=== PATIENT | male | born 1950 | race Caucasian/White ===

== ENCOUNTER 2021-05-15 08:34 | Outpatient (CLI) | payer MEDICARE, OTHER | END 2021-05-15 08:35 | disposition home or self-care (01) | LOC: CSHCT 08:34 | PROVIDERS: ATTEND Internal Medicine Hematology & Oncology | DX: C25.0 Malignant neoplasm of head of pancreas (principal); K83.9 Disease of biliary tract, unspecified; K31.89 Other diseases of stomach and duodenum; K63.89 Other specified diseases of intestine; Z98.890 Other specified postprocedural states; J43.9 Emphysema, unspecified | CPT/HCPCS: 71260; 74177 ==

== ENCOUNTER 2021-05-20 11:35 | Inpatient (IN) | payer MEDICARE, OTHER ==
[2021-05-20] MEDS ORDERED: Ondansetron PF 4 MG/2 ML Vial ONE (12:20)
[2021-05-20 12:27] LABS: Hemoglobin 11.8 g/dL (13.5-17.5); Mean Corpuscular HGB CONC 32.3 g/dL (32.0-36.0); Mean Corpuscular Volume 92.9 fl (81.2-95.1); Mean Platelet Volume 9.2 fl (7.4-10.4); Platelet Count 435 10x3/uL (150-450); RBC Distribution Width 14.8 % (11.5-14.5); Red Blood Cell (RBC) Count 3.93 10x6/uL (4.32-5.72); White Blood Cell (WBC) Count 20.7 10x3/uL (3.5-10.5)
[2021-05-20 12:29] LABS: MDiff Complete? YES
[2021-05-20 12:40] LABS: ALT (SGPT) 24 U/L (8-55); AST (SGOT) 22 U/L (5-34); Albumin 3.8 g/dL (3.4-4.8); Alkaline Phosphatase 214 U/L (40-110); Anion Gap 25 mmol/L (10-20); BUN (Urea Nitrogen) 29 mg/dL (8.4-25.7); Bilirubin, Total 1.2 mg/dL (0.2-1.2); Calc. Creatinine Clearance 0 mL/min (70-130); Calcium 8.7 mg/dL (7.8-10.44); Carbon Dioxide 22 mmol/L (23-31); Chloride 95 mmol/L (98-107); Globulin 3.1 g/dL (2.4-3.5); Glucose 144 mg/dL (80-115); Lipase 339 U/L (8-78); Potassium 3.7 mmol/L (3.5-5.1); Protein, Total 6.9 g/dL (5.8-8.1); Sodium 138 mmol/L (136-145)
[2021-05-20 13:24] LABS: Lymphocytes 3 % (21-51); Monocytes 5 % (0-10); Neutrophil 92 % (42-75); Platelet Morphology Comment Appears Increased
[2021-05-20] MEDS ORDERED: Ondansetron ODT 4 MG TAB SL PRN (14:09)
[2021-05-20] MEDS ORDERED: Sodium Chloride 0.9% 1,000 ML IV SCH (14:09)
[2021-05-20 15:32] LABS: SARS-CoV-2 NAA Rapid Test Not Detected (NotDetected)
[2021-05-20 16:08] LABS: Bilirubin Neg (Negative); Blood, Urine 10 (Negative); Clarity Clear (Clear); Glucose, Urine (Dipstick) Normal (Negative); Ketone, Urine 50 mg/dL (Negative); Leukocyte Negative (Negative); Nitrite Negative (Negative); Protein, Urine (Dipstick) 30 mg/dl (Neg-Trace); Specific Gravity, Urine 1.005 (1.002-1.036); Urobilinogen Normal mg/dL (Less than 2)
[2021-05-20 16:18] LABS: Bacteria/HPF None Seen HPF (None Seen); RBC/HPF 0-3 HPF (0-3); Squamous Epithelial 0-3 HPF (0-3); WBC/HPF 0-3 HPF (0-3)
[2021-05-20 18:20] VITALS: BMI 13.4
[2021-05-20] MEDS ORDERED: Morphine 4 MG/ML VIAL SLOW IVP PRN (18:30)
[2021-05-20] MEDS: Sodium Chloride 0.9% 1,000 ML IV SCH (18:40)
[2021-05-20] MEDS: Ondansetron PF 4 MG/2 ML Vial IVP PRN (20:12)
[2021-05-21] MEDS: Sodium Chloride 0.9% 1,000 ML IV SCH ×4 (00:14→16:46)
[2021-05-21 06:36] LABS: Albumin 2.8 g/dL (3.4-4.8); Anion Gap 15 mmol/L (10-20); BUN (Urea Nitrogen) 20 mg/dL (8.4-25.7); Bilirubin, Total 0.6 mg/dL (0.2-1.2); Calc. Creatinine Clearance 50 mL/min (70-130); Calcium 7.8 mg/dL (7.8-10.44); Carbon Dioxide 26 mmol/L (23-31); Chloride 103 mmol/L (98-107); Glucose 82 mg/dL (80-115); Potassium 3.4 mmol/L (3.5-5.1); Protein, Total 5.5 g/dL (5.8-8.1); Sodium 141 mmol/L (136-145)
[2021-05-21 06:37] LABS: ALT (SGPT) 16 U/L (8-55); AST (SGOT) 18 U/L (5-34); Alkaline Phosphatase 140 U/L (40-110); Cardiac Risk 2.8 (Less than 4.5); Cholesterol 78 mg/dl (< 200 Desired); Globulin 2.7 g/dL (2.4-3.5); HDL Cholesterol 28 mg/dL (>60 Neg Risk); LDL Cholesterol, Calculated 39 mg/dL; Lipase 151 U/L (8-78); Magnesium 1.8 mg/dL (1.6-2.6); Phosphorus 2.8 mg/dL (2.3-4.7); Triglycerides 54 mg/dL (Less than 150)
[2021-05-21 06:39] LABS: INR-International Normal Ratio 1.2; PTT 28.2 sec (22.0-33.0)
[2021-05-21 06:43] LABS: #Eosinphils 0.1 10x3/uL (0.0-0.5); #Monocytes 1.2 10x3/uL (0.0-1.1); #Neutrophils 8.4 10x3/uL (1.5-8.4); %Basophils 0.4 % (0.0-2.0); %Eosinophils 0.5 % (0.0-6.0); %Lymphocytes 10.2 % (18.0-47.0); %Neutrophils 77.3 % (40.0-75.0); Mean Corpuscular HGB CONC 32.5 g/dL (32.0-36.0); Mean Corpuscular Hemoglobin 30.6 pg (27.0-33.0); Mean Corpuscular Volume 94.2 fl (81.2-95.1); Mean Platelet Volume 9.2 fl (7.4-10.4); Platelet Count 280 10x3/uL (150-450); RBC Distribution Width 14.9 % (11.5-14.5); Red Blood Cell (RBC) Count 2.94 10x6/uL (4.32-5.72); White Blood Cell (WBC) Count 10.9 10x3/uL (3.5-10.5)
[2021-05-21] MEDS ORDERED: Potassium Chloride 40 MEQ in Premix Bag 1 BAG IVPB SCH (07:00)
[2021-05-21] MEDS ORDERED: Pantoprazole 40 MG VIAL IVP SCH (09:00)
[2021-05-21] MEDS: Potassium Chloride 20 MEQ in Premix Bag 1 BAG IVPB SCH ×3 (09:13→15:51)
[2021-05-21] MEDS: Ondansetron PF 4 MG/2 ML Vial IVP PRN (10:43)
[2021-05-21 11:39] LABS: Hemoglobin A1c 5.9 % (4.0-6.0)
[2021-05-21] MEDS ORDERED: Succinylcholine 200 MG/10 ml SYRINGE FS ONE (13:29)
[2021-05-21] MEDS ORDERED: Promethazine HCl 25 MG/ML VIAL ONE (13:32)
[2021-05-21] MEDS ORDERED: Fentanyl 100 MCG/2 ML VIAL ONE (13:36)
[2021-05-21] MEDS ORDERED: Potassium Chloride 20 MEQ in Premix Bag 1 BAG IVPB SCH (16:00)
[2021-05-21] MEDS ORDERED: Metoclopramide HCl 10 MG/2 ML VIAL IVP SCH (17:45)
[2021-05-21] MEDS: Pantoprazole 40 MG VIAL IVP SCH (20:40)
[2021-05-21] MEDS: Metoclopramide HCl 10 MG/2 ML VIAL IVP SCH (23:24)
[2021-05-22 05:09] LABS: #Basophils 0.1 10x3/uL (0.0-0.2); #Eosinphils 0.1 10x3/uL (0.0-0.5); #Monocytes 1.6 10x3/uL (0.0-1.1); #Neutrophils 14.3 10x3/uL (1.5-8.4); %Basophils 0.6 % (0.0-2.0); %Eosinophils 0.4 % (0.0-6.0); %Lymphocytes 7.9 % (18.0-47.0); %Monocytes 8.9 % (0.0-10.0); %Neutrophils 81.5 % (40.0-75.0); Hemoglobin 10.2 g/dL (13.5-17.5); Mean Corpuscular Hemoglobin 29.8 pg (27.0-33.0); Mean Corpuscular Volume 96.2 fl (81.2-95.1); Platelet Count 329 10x3/uL (150-450); RBC Distribution Width 14.9 % (11.5-14.5); Red Blood Cell (RBC) Count 3.42 10x6/uL (4.32-5.72); White Blood Cell (WBC) Count 17.5 10x3/uL (3.5-10.5)
[2021-05-22 05:13] LABS: ALT (SGPT) 18 U/L (8-55); AST (SGOT) 20 U/L (5-34); Albumin 3.1 g/dL (3.4-4.8); Alkaline Phosphatase 167 U/L (40-110); Anion Gap 22 mmol/L (10-20); BUN (Urea Nitrogen) 16 mg/dL (8.4-25.7); Bilirubin, Total 0.7 mg/dL (0.2-1.2); Calc. Creatinine Clearance 49 mL/min (70-130); Calcium 8.1 mg/dL (7.8-10.44); Carbon Dioxide 20 mmol/L (23-31); Chloride 106 mmol/L (98-107); Glucose 66 mg/dL (80-115); Magnesium 1.8 mg/dL (1.6-2.6); Phosphorus 2.9 mg/dL (2.3-4.7); Potassium 3.8 mmol/L (3.5-5.1); Protein, Total 6.1 g/dL (5.8-8.1); Sodium 144 mmol/L (136-145)
[2021-05-22] MEDS: Metoclopramide HCl 10 MG/2 ML VIAL IVP SCH ×4 (05:36→23:36)
[2021-05-22] MEDS: Pantoprazole 40 MG VIAL IVP SCH ×2 (08:31→20:27)
[2021-05-22] MEDS: Sodium Chloride 0.9% 1,000 ML IV SCH ×2 (10:20→16:15)
[2021-05-22 17:29] LABS: Bilirubin Neg (Negative); Blood, Urine 10 (Negative); Clarity Clear (Clear); Glucose, Urine (Dipstick) Normal (Negative); Ketone, Urine 50 mg/dL (Negative); Leukocyte Negative (Negative); Nitrite Negative (Negative); Protein, Urine (Dipstick) 15 mg/dl (Neg-Trace); Urobilinogen Normal mg/dL (Less than 2)
[2021-05-22 17:57] LABS: Urine Culture Reflex No No
[2021-05-22 17:58] LABS: Bacteria/HPF None Seen HPF (None Seen); RBC/HPF None Seen HPF (0-3); Squamous Epithelial None Seen HPF (0-3); WBC/HPF None Seen HPF (0-3)
[2021-05-22] MEDS: Acetaminophen 650 MG/20.3 ML UDCUP PO PRN (18:38)
[2021-05-23] MEDS: Metoclopramide HCl 10 MG/2 ML VIAL IVP SCH ×2 (05:38→13:15)
[2021-05-23] MEDS: Sodium Chloride 0.9% 1,000 ML IV SCH ×2 (05:40→13:15)
[2021-05-23 05:49] LABS: #Basophils 0.1 10x3/uL (0.0-0.2); #Eosinphils 0.1 10x3/uL (0.0-0.5); #Monocytes 1.3 10x3/uL (0.0-1.1); %Basophils 0.3 % (0.0-2.0); %Eosinophils 0.7 % (0.0-6.0); %Lymphocytes 5.6 % (18.0-47.0); %Neutrophils 84.7 % (40.0-75.0); Hemoglobin 9.3 g/dL (13.5-17.5); Mean Corpuscular HGB CONC 32.1 g/dL (32.0-36.0); Mean Corpuscular Hemoglobin 30.1 pg (27.0-33.0); Mean Corpuscular Volume 93.9 fl (81.2-95.1); Platelet Count 278 10x3/uL (150-450); Red Blood Cell (RBC) Count 3.09 10x6/uL (4.32-5.72); White Blood Cell (WBC) Count 16.5 10x3/uL (3.5-10.5)
[2021-05-23 05:55] LABS: ALT (SGPT) 17 U/L (8-55); AST (SGOT) 20 U/L (5-34); Albumin 2.8 g/dL (3.4-4.8); Alkaline Phosphatase 177 U/L (40-110); Anion Gap 10 mmol/L (10-20); BUN (Urea Nitrogen) 6 mg/dL (8.4-25.7); Bilirubin, Total 0.6 mg/dL (0.2-1.2); Calc. Creatinine Clearance 59 mL/min (70-130); Calcium 7.9 mg/dL (7.8-10.44); Carbon Dioxide 24 mmol/L (23-31); Chloride 109 mmol/L (98-107); Glucose 125 mg/dL (80-115); Magnesium 1.6 mg/dL (1.6-2.6); Phosphorus 2.4 mg/dL (2.3-4.7); Protein, Total 5.8 g/dL (5.8-8.1); Sodium 141 mmol/L (136-145)
[2021-05-23 06:00] LABS: Potassium 2.4 mmol/L (3.5-5.1)
[2021-05-23] MEDS: Potassium Bicarbonate/Cit Ac 20 MEQ TAB PER TUBE SCH ×2 (06:54→10:48)
[2021-05-23] MEDS: Pantoprazole 40 MG VIAL IVP SCH ×2 (10:49→21:55)
[2021-05-23] MEDS: Metoclopramide 10 MG/10 ML UDCUP PER TUBE SCH (18:19)
[2021-05-23] MEDS: Acetaminophen 650 MG/20.3 ML UDCUP PO PRN (18:47)
[2021-05-24] MEDS: Metoclopramide 10 MG/10 ML UDCUP PER TUBE SCH ×2 (00:39→06:32)
[2021-05-24] MEDS: Acetaminophen 650 MG/20.3 ML UDCUP PO PRN (00:51)
[2021-05-24] MEDS ORDERED: Acetaminophen 650 MG/20.3 ML UDCUP ONE (00:52)
[2021-05-24 05:52] LABS: #Basophils 0.1 10x3/uL (0.0-0.2); #Eosinphils 0.2 10x3/uL (0.0-0.5); #Monocytes 1.1 10x3/uL (0.0-1.1); #Neutrophils 9.8 10x3/uL (1.5-8.4); %Basophils 0.4 % (0.0-2.0); %Eosinophils 1.6 % (0.0-6.0); %Lymphocytes 6.9 % (18.0-47.0); %Monocytes 9.4 % (0.0-10.0); %Neutrophils 81.2 % (40.0-75.0); Hemoglobin 8.5 g/dL (13.5-17.5); Mean Corpuscular HGB CONC 32.2 g/dL (32.0-36.0); Mean Corpuscular Hemoglobin 30.5 pg (27.0-33.0); Mean Corpuscular Volume 94.6 fl (81.2-95.1); Mean Platelet Volume 9.6 fl (7.4-10.4); Platelet Count 182 10x3/uL (150-450); RBC Distribution Width 14.6 % (11.5-14.5); Red Blood Cell (RBC) Count 2.79 10x6/uL (4.32-5.72)
[2021-05-24] MEDS: Sodium Chloride 0.9% 1,000 ML IV SCH (06:32)
[2021-05-24 07:44] LABS: ALT (SGPT) 14 U/L (8-55); AST (SGOT) 17 U/L (5-34); Albumin 2.4 g/dL (3.4-4.8); Alkaline Phosphatase 137 U/L (40-110); Anion Gap 9 mmol/L (10-20); BUN (Urea Nitrogen) 4 mg/dL (8.4-25.7); Bilirubin, Total 0.9 mg/dL (0.2-1.2); Calc. Creatinine Clearance 57 mL/min (70-130); Calcium 7.5 mg/dL (7.8-10.44); Carbon Dioxide 26 mmol/L (23-31); Chloride 106 mmol/L (98-107); Globulin 2.7 g/dL (2.4-3.5); Glucose 102 mg/dL (80-115); Magnesium 1.4 mg/dL (1.6-2.6); Phosphorus 1.9 mg/dL (2.3-4.7); Potassium 2.7 mmol/L (3.5-5.1); Protein, Total 5.1 g/dL (5.8-8.1); Sodium 138 mmol/L (136-145)
[2021-05-24] MEDS: Pantoprazole 40 MG VIAL IVP SCH (10:42)
[2021-05-24] MEDS: Metoclopramide 10 MG/10 ML UDCUP PO SCH ×2 (12:18→18:01)
[2021-05-24] MEDS ORDERED: Potassium Bicarbonate/Cit Ac 20 MEQ TAB PO SCH (16:00)
[2021-05-24 16:40] VITALS: BP 105/55; TEMP 99.5
== END 2021-05-24 18:35 | disposition home or self-care (01) | DRG 381 ==
LOC: SUATTDRO 11:35 → CSHERS 11:35 → CSHTELE 17:13
PROVIDERS: ADMIT Family Medicine; ATTEND Family Medicine
PROC: 0DB98ZX Excision of Duodenum, Via Natural or Artificial Opening Endoscopic, Diagnostic (ICD-10-PCS; principal; 2021-05-21)
PROC: 0D9670Z Drainage of Stomach with Drainage Device, Via Natural or Artificial Opening (ICD-10-PCS; 2021-05-23)
DX: K31.1 Adult hypertrophic pyloric stenosis (principal); K31.5 Obstruction of duodenum; C25.9 Malignant neoplasm of pancreas, unspecified; K50.812 Crohn's disease of both small and large intestine with intestinal obstruction; R64 Cachexia; Z68.1 Body mass index [BMI] 19.9 or less, adult; N17.9 Acute kidney failure, unspecified; Z88.2 Allergy status to sulfonamides; Z88.1 Allergy status to other antibiotic agents; Z88.8 Allergy status to other drugs, medicaments and biological substances; Z79.899 Other long term (current) drug therapy; I10 Essential (primary) hypertension; Z85.07 Personal history of malignant neoplasm of pancreas; M19.90 Unspecified osteoarthritis, unspecified site; F17.210 Nicotine dependence, cigarettes, uncomplicated; K31.89 Other diseases of stomach and duodenum; D64.9 Anemia, unspecified; D72.829 Elevated white blood cell count, unspecified; K44.9 Diaphragmatic hernia without obstruction or gangrene; Z20.822 Contact with and (suspected) exposure to COVID-19; E86.0 Dehydration; E87.6 Hypokalemia
CPT/HCPCS: 36415; 36416; 71045; 74018; 74176; 80053; 80061; 81001; 81003; 81015; 83036; 83690; 83735; 84100; 84443; 85025; 85610; 85730; 86850; 86900; 86901; 87040; 88305; 88342; 93005; 93010; 96374; C9113; J2405; J2550; J2765; J3010; J3480; J7050; U0002